=== PATIENT | female | born 1995 | race American Indian/Alaskan Native ===

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

== ENCOUNTER 2017-06-13 23:38 | Emergency (ER) | payer MEDICAID ==
[2017-06-14 00:30] LABS: Basophils % (Auto) 0.5 % (0.0-1.8); Eosinophils # (Auto) 0.1 K/mm3 (0.0-0.4); Eosinophils % (Auto) 0.8 % (0.0-4.3); Hematocrit 40.9 % (30.3-42.9); Hemoglobin 13.6 gm/dl (10.1-14.3); Lymphocytes # (Auto) 1.5 K/mm3 (1.2-5.4); Lymphocytes % (Auto) 19.2 % (13.4-35.0); Mean Corpuscular HGB Conc 33 % (30-34); Mean Corpuscular Hemoglobin 29 pg (28-32); Mean Corpuscular Volume 88 fl (79-97); Monocytes # (Auto) 0.7 K/mm3 (0.0-0.8); Monocytes % (Auto) 8.9 % (0.0-7.3); Platelet Count 219 K/mm3 (140-440); Red Blood Count 4.65 M/mm3 (3.65-5.03); Red Cell Distribution Width 12.6 % (13.2-15.2)
[2017-06-14 00:55] LABS: Alanine Aminotransferase 8 units/L (7-56); Albumin 4.3 g/dL (3.9-5); BUN/Creatinine Ratio 18; Blood Urea Nitrogen 11 mg/dL (7-17); Calcium 9.2 mg/dL (8.4-10.2); Hemolysis Index 4
[2017-06-14] MEDS ORDERED: ZOFRAN ODT PO ONE (02:38)
[2017-06-14] MEDS ORDERED: ULTRAM PO ONE (02:38)
[2017-06-14 02:52] LABS: Bilirubin,Urine NEG (Negative); Blood,Urine NEG (Negative); Color,Urine Yellow (Yellow); Protein,Urine <15 mg/dL mg/dL (Negative); Urobilinogen,Urine < 2.0 mg/dL (<2.0)
[2017-06-14] MEDS ORDERED: XYLOCAINE 1% MPF 5 mL INFILTRATI ONE (03:00)
[2017-06-14] MEDS ORDERED: ROCEPHIN IM ONE (03:00)
[2017-06-14] MEDS ORDERED: ZITHROMAX PO ONE (03:00)
[2017-06-14] MEDS ORDERED: FLAGYL PO ONE (03:07)
[2017-06-14 03:36] VITALS: BP 125/47
--- NOTE | 2017-06-14 04:36 | Emergency Department Report ---
HPI - General Chief Complaint: Abdominal Pain Time Seen by Provider: 06/14/17 01:40 - HPI HPI: The patient is a 21-year-old female presents for evaluation of abdominal pain. The patient reports lower abdominal pain for 2-3 months, worsened for the past week, moderate in severity, crampy in quality, exacerbated with position changes. She admits to chronic vaginal discharge and vaginal irritation for many months. The patient denies fever, chills, night sweats, nausea, vomiting, diarrhea, blood in the stool, dark tarry stool, dysuria, hematuria, flank pain, vaginal bleeding, inability to pass flatus. ED Past Medical Hx - Past Medical History Previous Medical History?: Yes - Surgical History Past Surgical History?: No - Social History Smoking Status: Never Smoker Substance Use Type: None - Medications Home Medications: Home Medications Medication Instructions Recorded Confirmed Last Taken Type metroNIDAZOLE [Flagyl] 500 mg PO Q12HR #14 tab 08/25/16 Unknown Rx Ibuprofen [Motrin] 800 mg PO Q8HR PRN #15 tablet 06/14/17 Unknown Rx metroNIDAZOLE [Flagyl] 500 mg PO Q12HR #14 tab 06/14/17 Unknown Rx ED Review of Systems ROS: Stated complaint: ABD PAIN Other details as noted in HPI Constitutional: denies: fever ENT: denies: throat or neck pain Respiratory: denies: cough, shortness of breath Cardiovascular: denies: chest pain Endocrine: denies unexplained weight loss or gain Gastrointestinal: reports abdominal pain denies: nausea Genitourinary: reports vaginal discharge denies: dysuria Musculoskeletal: denies: leg swelling Skin: denies: rash Neurological: denies: headache Hematological/Lymphatic: denies: easy bleeding or easy bruising Psych: denies sadness or hopelessness Physical Exam - Physical Exam Vital Signs: Vital Signs 06/13/17 06/14/17 06/14/17 23:39 00:06 00:34 Temperature 98.8 F 98.8 F Pulse Rate 98 H 98 H Respiratory 18 18 Rate Blood Pressure 140/84 140/84 123/78 O2 Sat by Pulse 99 99 Oximetry 06/14/17 06/14/17 06/14/17 00:45 01:00 01:16 Temperature 98.9 F Pulse Rate Respiratory Rate Blood Pressure 123/78 123/78 110/79 O2 Sat by Pulse 100 100 98 Oximetry 04/01/2106/14/17 06/14/17 01:30 01:46 02:00 Temperature Pulse Rate Respiratory Rate Blood Pressure 121/67 121/67 115/75 O2 Sat by Pulse 100 98 98 Oximetry 06/14/17 06/14/17 06/14/17 02:16 02:30 02:46 Temperature Pulse Rate Respiratory Rate Blood Pressure 115/75 123/73 123/73 O2 Sat by Pulse 98 96 84 Oximetry 06/14/17 03:00 Temperature Pulse Rate Respiratory Rate Blood Pressure 125/47 O2 Sat by Pulse 98 Oximetry Physical Exam: General: well-nourished, well-developed, no acute distress Head: Normocephalic, atraumatic Eyes: normal sclera ENT: Mucous membranes are pale and dry Neck: trachea midline, neck supple, No neck stiffness, no cervical adenopathy Respiratory: Breath sounds equal bilaterally, no wheezing, rales, or rhonchi Cardio: S1 and S2 present, no murmurs, rubs, gallops, capillary refill is delayed Abdomen: Normoactive bowel sounds, soft abdomen, suprapubic and periumbilical tenderness to palpation present, no rigidity, no guarding or rebound tenderness Chest WALL/Back: No tenderness to palpation of the chest wall, no CVA tenderness with percussion Musc: No pitting edema Skin: No rash Neuro: no facial drooping, normal speech Psych: Normal affect ED Course Vital Signs 06/13/17 06/14/17 06/14/17 23:39 00:06 00:34 Temperature 98.8 F 98.8 F Pulse Rate 98 H 98 H Respiratory 18 18 Rate Blood Pressure 140/84 140/84 123/78 O2 Sat by Pulse 99 99 Oximetry 06/14/17 06/14/17 06/14/17 00:45 01:00 01:16 Temperature 98.9 F Pulse Rate Respiratory Rate Blood Pressure 123/78 123/78 110/79 O2 Sat by Pulse 100 100 98 Oximetry 06/14/17 06/14/17 06/14/17 01:30 01:46 02:00 Temperature Pulse Rate Respiratory Rate Blood Pressure 121/67 121/67 115/75 O2 Sat by Pulse 100 98 98 Oximetry 06/14/17 06/14/17 06/14/17 02:16 02:30 02:46 Temperature Pulse Rate Respiratory Rate Blood Pressure 115/75 123/73 123/73 O2 Sat by Pulse 98 96 84 Oximetry 06/14/17 03:00 Temperature Pulse Rate Respiratory Rate Blood Pressure 125/47 O2 Sat by Pulse 98 Oximetry ED Medical Decision Making - Lab Data Result diagrams: 06/14/17 00:16 06/14/17 00:16 - Medical Decision Making The patient was seen and examined by myself. The patient is placed on a front desk person and continuous pulse ox. On initial evaluation, the patient was found to be in no distress. Evaluation orders are placed. The patient was given pain medicine. Lab results were non-concerning including WBC, hemoglobin , hematocrit, electrolytes, renal function, LFTs, lipase, and urinalysis. Negative test. Medical records are reviewed and revealed that the patient was found to have a positive culture for gonorrhea. She was questioned regarding the positive result and reported that she was never informed of the positive result and was never treated for gonorrhea or chlamydia. As patient has continued to experience vaginal discharge and irritation chronically, and was never treated for cervicitis, the patient will be treated for cervicitis and vaginitis. The patient was given IM Rocephin, and by mouth azithromycin and Flagyl. The patient was reevaluated and reported that their symptoms were markedly improved. The patient is stable for discharge with outpatient follow- up. The patient is given follow-up and return instructions. The patient expressed understanding and agreed with the plan. The patient is discharged in stable condition. Critical care attestation.: If time is entered above; I have spent that time in minutes in the direct care of this critically ill patient, excluding procedure time. ED Disposition Clinical Impression: Abdominal pain, acute, periumbilical, Dehydration, mild Vaginitis Qualifiers: Chronicity: acute Qualified Code(s): N76.0 - Acute vaginitis Disposition: DC-01 TO HOME OR SELFCARE Is pt being admited?: No Does the pt Need Aspirin: No Condition: Stable Instructions: Abdominal Pain (ED), Sexually Transmitted Diseases (ED), Safe Sex (ED), Trichomoniasis (ED), Gonococcal Urethritis (ED) Referrals: RANJAN NARAYANAN MD [Staff Physician] - 3-5 Days [facility] [Provider Group] - 3-5 Days Time of Disposition: 04:30
== END 2017-06-14 04:40 | disposition home or self-care (01) ==
LOC: ED 23:38
DX: E86.0 Dehydration (principal); N76.0 Acute vaginitis
CPT/HCPCS: 36415; 80053; 81001; 84703; 85025; 96372; 99283; J0696; Q0162

== ENCOUNTER 2017-10-09 20:23 | Emergency (ER) | payer MEDICAID ==
[2017-10-09 21:23] VITALS: BP 117/82
[2017-10-10 00:29] LABS: Bacteria,Urine 1+ /HPF (Negative); Bilirubin,Urine NEG (Negative); Blood,Urine LG (Negative); Color,Urine Yellow (Yellow); Mucus,Urine FEW /HPF; Protein,Urine <15 mg/dL mg/dL (Negative)
--- NOTE | 2017-10-10 00:58 | Emergency Department Report ---
ED General Adult HPI - General Chief complaint: Skin Rash Stated complaint: VAG BURNING SENSATION Time Seen by Provider: 10/09/17 23:10 Source: patient Mode of arrival: Ambulatory Limitations: No Limitations - History of Present Illness Initial comments: Patient herniorrhaphy female who presents with dysuria urgency frequency after shaving perineal area patient denies that vaginal discharge no vaginal bleeding no back pain abdominal pain no nausea vomiting denies risk of STI symptoms are 4 /10 level exacerbated by voiding, relieved by cold shower Onset/Timin -: days(s) Radiation: non-radiation Severity scale (0 -10): 4 Quality: burning, other (itching) Consistency: intermittent Improves with: none Worsens with: other (voiding ) Associated Symptoms: denies: confusion, chest pain, cough, diaphoresis, fever/ chills, headaches, loss of appetite, malaise, nausea/vomiting, rash, seizure, shortness of breath, syncope, weakness - Related Data Previous Rx's Medication Instructions Recorded Last Taken Type metroNIDAZOLE [Flagyl] 500 mg PO Q12HR #14 tab 08/25/16 Unknown Rx Ibuprofen [Motrin] 800 mg PO Q8HR PRN #15 tablet 06/14/17 Unknown Rx metroNIDAZOLE [Flagyl] 500 mg PO Q12HR #14 tab 06/14/17 Unknown Rx Fluconazole [Diflucan TAB] 150 mg PO ONCE #1 tablet 10/10/17 Unknown Rx Mupirocin [Bactroban 2% OINT] 1 applic TP TID #1 tube 10/10/17 Unknown Rx Nitrofurantoin Monohyd/M-Cryst 100 mg PO BID #14 capsule 10/10/17 Unknown Rx [Macrobid 100 mg Capsule] Allergies Allergy/AdvReac Type Severity Reaction Status Date / Time No Known Allergies Allergy Unverified 08/25/16 13:41 ED Review of Systems ROS: Stated complaint: VAG BURNING SENSATION Other details as noted in HPI Constitutional: denies: chills, fever Eyes: denies: eye pain, eye discharge, vision change ENT: denies: ear pain, throat pain Respiratory: denies: cough, shortness of breath, wheezing Cardiovascular: denies: chest pain, palpitations Endocrine: no symptoms reported Gastrointestinal: denies: abdominal pain, nausea, diarrhea Genitourinary: urgency, dysuria, frequency. denies: hematuria, discharge, abnormal menses, dyspareunia Musculoskeletal: denies: back pain, joint swelling, arthralgia Skin: rash (perineal "razor bumps"). denies: lesions Neurological: denies: headache, weakness, paresthesias Psychiatric: denies: anxiety, depression Hematological/Lymphatic: denies: easy bleeding, easy bruising ED Past Medical Hx - Past Medical History Previous Medical History?: No - Surgical History Past Surgical History?: No - Social History Smoking Status: Never Smoker Substance Use Type: None - Medications Home Medications: Home Medications Medication Instructions Recorded Confirmed Last Taken Type metroNIDAZOLE [Flagyl] 500 mg PO Q12HR #14 tab 08/25/16 Unknown Rx Ibuprofen [Motrin] 800 mg PO Q8HR PRN #15 tablet 06/14/17 Unknown Rx metroNIDAZOLE [Flagyl] 500 mg PO Q12HR #14 tab 06/14/17 Unknown Rx Fluconazole [Diflucan TAB] 150 mg PO ONCE #1 tablet 10/10/17 Unknown Rx Mupirocin [Bactroban 2% OINT] 1 applic TP TID #1 tube 10/10/17 Unknown Rx Nitrofurantoin Monohyd/M-Cryst 100 mg PO BID #14 capsule 10/10/17 Unknown Rx [Macrobid 100 mg Capsule] ED Physical Exam - General Limitations: No Limitations General appearance: alert, in no apparent distress - Head Head exam: Present: atraumatic, normocephalic - Eye Eye exam: Present: normal appearance - ENT ENT exam: Present: mucous membranes moist - Neck Neck exam: Present: normal inspection - Respiratory Respiratory exam: Present: normal lung sounds bilaterally. Absent: respiratory distress - Cardiovascular Cardiovascular Exam: Present: regular rate, normal rhythm. Absent: systolic murmur, diastolic murmur, rubs, gallop - GI/Abdominal GI/Abdominal exam: Present: soft, normal bowel sounds - Rectal Rectal exam: Present: deferred - External exam: Present: other (exam deferred per patient ) - Extremities Exam Extremities exam: Present: normal inspection, full ROM. Absent: tenderness - Back Exam Back exam: Present: normal inspection, full ROM, rash noted. Absent: tenderness , CVA tenderness (R), CVA tenderness (L), muscle spasm, paraspinal tenderness, vertebral tenderness - Neurological Exam Neurological exam: Present: alert, oriented X3, CN II-XII intact, normal gait, reflexes normal - Psychiatric Psychiatric exam: Present: normal affect, normal mood - Skin Skin exam: Present: warm, dry, intact, normal color. Absent: rash ED Course Vital Signs 10/09/17 21:20 Temperature 98.2 F Pulse Rate 88 Respiratory 18 Rate Blood Pressure 117/82 O2 Sat by Pulse 100 Oximetry ED Medical Decision Making - Lab Data Laboratory Tests 10/10/17 00:01 Urine Color Yellow Urine Turbidity Slightly cloudy Urine pH 6.0 Ur Specific [place] 1.017 Urine Protein <15 mg/dl Urine Glucose (UA) Neg Urine Ketones Neg Urine Blood Lg Urine Nitrite Neg Urine Bilirubin Neg Urine Urobilinogen 2.0 Ur Leukocyte Esterase Lg Urine WBC (Auto) 111.0 H Urine RBC (Auto) 17.0 U Epithel Cells (Auto) 5.0 Urine Bacteria (Auto) 1+ Urine Mucus Few - Medical Decision Making This is UTI patient denies hematuria no voiding problems of back pain no CVA tenderness no history of renal stone not likely stone symptoms started after perineal shaving Plan Macrobid Diflucan mupirocin ointment follows outside [facility] in 2-3 days return to ED if symptoms worsen as well as understanding and agreement was signed DC'd home stable condition at this time Critical care attestation.: If time is entered above; I have spent that time in minutes in the direct care of this critically ill patient, excluding procedure time. ED Disposition Clinical Impression: Dermatitis UTI (urinary tract infection) Qualifiers: Urinary tract infection type: acute cystitis Hematuria presence: without hematuria Qualified Code(s): N30.00 - Acute cystitis without hematuria Vaginitis Qualifiers: Chronicity: acute Qualified Code(s): N76.0 - Acute vaginitis Disposition: DC- TO HOME OR SELFCARE Is pt being admited?: No Does the pt Need Aspirin: No Condition: Good Instructions: Urinary Tract Infection in Women (ED), Vaginitis (ED), Contact Dermatitis (ED) Prescriptions: Fluconazole [Diflucan TAB] 150 mg PO ONCE #1 tablet Mupirocin [Bactroban 2% OINT] 1 applic TP TID #1 tube Nitrofurantoin Monohyd/M-Cryst [Macrobid 100 mg Capsule] 100 mg PO BID #14 capsule Referrals: PRIMARY CARE, [Primary Care Provider] - 3-5 Days Forms: Work/School Release Form(ED) Time of Disposition: 01:03
== END 2017-10-10 01:05 | disposition home or self-care (01) ==
LOC: ED 20:23
DX: L30.9 Dermatitis, unspecified (principal); N30.00 Acute cystitis without hematuria; N76.0 Acute vaginitis
CPT/HCPCS: 81001; 99283